=== PATIENT | male | born 1950 | race Caucasian/White ===

== ENCOUNTER 2020-11-26 22:02 | Emergency (ER) | payer MEDICARE, OTHER ==
[~2020-11-26] VITALS: Ht 170.2 cm; Wt 174.6 kg
[~2020-11-26 22:02] MED LIST: ASPIR 8181 MG PO; ASPIRIN81 M2 PO; CIPRO250 M1 PO; FISH OIL 1,001000 M2 PO; IBUPROFEN 200200 M1 PO; KEFLEX500 MG PO; MOBIC15 MG PO; NORCO 5-325 TA1 EACH PO; PERCOCET 5-3251 EACH PO; PROAIR HFA8.5 GM; RED YEAST RICE600 MG PO; SIMVASTATIN20 MG PO; SINGULAIR 10 MG10 M1 PO; SYMBICORT160 MCG/4. INH; TAMSULOSIN HCL0.4 MG PO; TRIBENZOR 40-11 EAC1 PO
[2020-11-26] MEDS ORDERED: PULMICORT0.5 MG/2 M INH (22:47)
[2020-11-26] MEDS ORDERED: ALBUTEROL2.5 MG/31 INH (22:47)
[2020-11-26] MEDS ORDERED: CHLORTHALIDONE25 MG PO (22:47)
[2020-11-26] MEDS ORDERED: ZIPSOR25 MG PO (22:47)
[2020-11-26] MEDS ORDERED: EZETIMIBE10 MG PO (22:48)
[2020-11-26] MEDS ORDERED: FUROSEMIDE 40 M40 MG PO (22:48)
[2020-11-26] MEDS ORDERED: HYDROXYZINE HCL25 M2 PO (22:48)
[2020-11-26] MEDS ORDERED: METFORMIN HCL500 M3 PO (22:56)
[2020-11-26] MEDS ORDERED: MELATONIN3 M1 PO (22:56)
[2020-11-26] MEDS ORDERED: LOSARTAN POTAS100 MG PO (22:56)
[2020-11-26] MEDS ORDERED: TRAMADOL 50 MG50 MG PO (22:57)
[2020-11-26] MEDS ORDERED: FLOMAX0.4 MG PO (22:57)
[2020-11-26] MEDS ORDERED: EFFER-K 10 MEQ10 ME1 PO (22:57)
[2020-11-26] MEDS ORDERED: SINGULAIR 10 MG10 MG PO (22:57)
[2020-11-26 23:27] LABS: ABSOLUTE EOSINOPHILS 0.2 thou/uL (0.0-0.7); ABSOLUTE MONOCYTES 0.5 thou/uL (0.0-1.2); ABSOLUTE NEUTROPHILS 8.7 thou/uL (1.6-8.1); BASOPHILS 0.4 %; EOSINOPHILS 1.7 %; HEMATOCRIT 42.3 % (42.0-52.0); HEMOGLOBIN 14.2 gm/dL (14.0-18.0); LYMPHOCYTES 9.4 %; MCH 29.3 pg (26.0-34.0); MCHC 33.7 g/dL (28.0-37.0); MCV 86.8 fL (80.0-100.0); MPV 7.5 fl. (7.2-11.1); NUCLEATED RBCS 0 /100WBC; PLATELET COUNT* 301 thou/uL (150-400); POLYS 83.5 %; RBC 4.87 mil/uL (4.50-6.00); RDW-CV 14.5 % (10.5-14.5); WBC 10.5 thou/uL (4.0-11.0)
[2020-11-26 23:44] LABS: CALCIUM 9.1 mg/dL (8.5-10.1); CREATININE 1.3 mg/dL (0.6-1.3)
[2020-11-26 23:49] LABS: ALBUMIN 3.8 g/dL (3.4-5.0); TOTAL BILIRUBIN 0.5 mg/dL (<0.1-1.0); TOTAL PROTEIN 7.7 g/dL (6.4-8.2)
[2020-11-27 01:40] LABS: URINE BILIRUBIN NEGATIVE (Negative); URINE BLOOD NEGATIVE (Negative); URINE CLARITY CLEAR; URINE COLOR YELLOW; URINE GLUCOSE-RANDOM NEGATIVE (Negative); URINE KETONES NEGATIVE (Negative); URINE LEUKOCYTES-REFLEX NEGATIVE (Negative); URINE NITRITE-REFLEX NEGATIVE (Negative); URINE PROTEIN NEGATIVE (Negative); URINE SPECIFIC GRAVITY >= 1.030 (1.005-1.030); URINE UROBILINOGEN 0.2 E.U./dl (0.2-1.0)
[2020-11-27] MEDS ORDERED: PERCOCET 5-3251 EACH PO (02:14)
[2020-11-27 02:24] VITALS: BP 132/68
== END 2020-11-27 02:24 | disposition home or self-care (01) ==
LOC: M.ERS 22:02
PROVIDERS: Personal Emergency Response Attendant
DX: M54.5 Low back pain (principal); I48.91 Unspecified atrial fibrillation; M19.90 Unspecified osteoarthritis, unspecified site; E78.00 Pure hypercholesterolemia, unspecified; I10 Essential (primary) hypertension; J44.9 Chronic obstructive pulmonary disease, unspecified; E66.01 Morbid (severe) obesity due to excess calories; Z68.44 Body mass index [BMI] 60.0-69.9, adult; Z87.442 Personal history of urinary calculi; Z88.1 Allergy status to other antibiotic agents; Z88.8 Allergy status to other drugs, medicaments and biological substances